=== PATIENT | male | born 1980 | race Caucasian/White ===

== ENCOUNTER → 2024-12-21 | Outpatient (CLI) | payer BC, SELFPAY ==
--- NOTE | 2024-12-21 15:08 | RAD_ITS ---
PROCEDURE: CHEST PA AND LATERAL 12/21/2024 REASON FOR EXAM: INFLAMMATORY POLYARTHROPATHY TECHNIQUE: Frontal and lateral views of the chest. COMPARISON: None RAD/Chest PA and Lateral IMPRESSION: No focal consolidation. Bibasilar subsegmental atelectasis. No pleural effusi on or pneumothorax. No acute fractures. Cardiac silhouette is unremarkable. Reading Location: [id number]
--- NOTE | 2024-12-21 15:10 | RAD_ITS ---
PROCEDURE: PELVIS 1 OR 2 VIEWS 12/21/2024 REASON FOR EXAM: INFLAMMATORY POLYARTHROPATHY TECHNIQUE: 1 view(s) of the pelvis. COMPARISON: None available FINDINGS: Bilateral symmetric appearing SI joints and pubic symphysis appear within limits. No asymmetric sclerosis or widening identified. No fracture or dislocation seen. The hip joint spaces appear within limits. RAD/Pelvis 1 or 2 Views IMPRESSION: Study appears within limits. Reading Location: [id number]
--- NOTE | 2024-12-21 15:10 | RAD_ITS ---
PROCEDURE: LUMBAR SPINE 2 OR 3 VIEWS 12/21/2024 REASON FOR EXAM: HISTORY OF HLA-B27 POLYARTHROPATHY TECHNIQUE: 2 view(s) of the lumbar spine COMPARISON: None available FINDINGS: 5 [id number] lumbar vertebral body types identified. No fracture or malalignment. The disc spaces appear within limits. Mild anterior degenerative endplate corner change at L3-4 at the superior anterior corner of L4 with a tiny focus of adjacent vacuum effect suggested. Facet joints appear within limits. RAD/Lumbar Spine 2 or 3 Views IMPRESSION: Very mild spondylosis suggested at L3-4 as above. Reading Location: [id number]
[2024-12-21 19:48] LABS: Absolute Lymphocyte Count 2.31 X10^3/uL (0.83-4.51); Absolute Neutrophil Count 4.2 X10^3/uL (2.0-7.7); Basophil% 1.4 % (0-1); Eosinophils% 1.4 % (0-5); Hematocrit 43.2 % (40-54); Hemoglobin 14.4 g/dL (13.0-16.5); Lymphocyte # 2.31 X10^3/ul (0.83-4.51); Mean Corp Hgb Conc 33.3 g/dL (32-36); Mean Corpuscular Hgb 30.3 pg (27.0-32.0); Mean Corpuscular Volume 90.9 fL (80-94); Mean Platelet Vol. 10.6 fl (6.2-12.0); Monocyte# 0.54 X10^3/uL; Monocyte% 7.5 % (0-10); NRBC Flagged by Analyzer 0 % (0-5); Neutrophil # 4.15 X10^3/uL (2.7-7.7); Neutrophil % 57.3 % (47-70); Platelet Count 304 K/mm3 (150-450); RBC Distribution Width CV 11.9 % (11.6-14.6); RBC Distribution Width SD 39.8 fl (35.1-43.9); Red Blood Count 4.75 M/mm3 (4.6-6.2); White Blood Count 7.2 K/mm3 (4.4-11.0)
[2024-12-21 20:29] LABS: Erythrocyte Sedimentation Rate 4 mm/hr (0-20)
[2024-12-21 20:47] LABS: ALB/GLOB Ratio 1.5 RATIO (0.9-2.4); AST(SGOT) 25 U/L (<=37); Alanine Aminotransfer ALT/SGPT 27 U/L (<=46); Albumin, Serum 4.6 g/dL (3.5-5.0); Alkaline Phosphatase 96 U/L (40-129); Anion Gap 13 (5-15); BUN 10 mg/dL (4-19); BUN/Creat Ratio 10.7 RATIO (10-20); Calcium,Total 9.3 mg/dL (7.6-11.0); Carbon Dioxide 25.1 mmol/L (21.0-32.0); Chloride 100 mmol/L (98-108); Creatinine, Serum 0.92 mg/dL (0.70-1.20); EST Glomerular Filtration Rate 106 (>60); Glucose 111 mg/dL (70-99); Hepatitis B Surface Antigen Nonreactive (Nonreactive); Hepatitis C Antibody Nonreactive (Nonreactive); Potassium 3.8 mmol/L (3.3-5.1); Protein, Total 7.6 g/dL (5.9-8.4); Sodium Level 138 mmol/L (133-145); Total Bilirubin 0.23 mg/dL (0.00-1.30)
[2024-12-21 20:59] LABS: CRP < 3.00 mg/L (0.0-3.0); Rheumatoid Factor < 10.0 IU/mL (<15)
[2024-12-21 21:38] LABS: Hepatitis B Surface Antibody Nonreactive
[2024-12-24 14:08] LABS: ANTINUCLEAR ANTIBODIES DIRECT Negative (Negative)
== END | disposition home or self-care (01) ==
LOC: MTRAD 15:07
PROVIDERS: PCP Family Medicine; Referring Provider Internal Medicine Rheumatology; Visit Provider Internal Medicine Rheumatology
DX: M06.4 Inflammatory polyarthropathy (principal); I10 Essential (primary) hypertension; R51.9 Headache, unspecified; E78.5 Hyperlipidemia, unspecified; M21.41 Flat foot [pes planus] (acquired), right foot; G25.81 Restless legs syndrome; Z79.899 Other long term (current) drug therapy
CPT/HCPCS: 36415; 71046; 72100; 72170; 80053; 85025; 85652; 86038; 86140; 86200; 86431; 86480; 86706; 86803; 87340

== ENCOUNTER → 2025-03-11 | Outpatient (CLI) | payer BC, SELFPAY ==
[2025-03-11 17:52] LABS: Hematocrit 40.3 % (40-54); Hemoglobin 13.6 g/dL (13.0-16.5); Immature Granulocytes Count 0.020 X10^3/uL (0.0-0.0); Mean Corp Hgb Conc 33.7 g/dL (32-36); Mean Corpuscular Volume 88.2 fL (80-94); Mean Platelet Vol. 10.5 fl (6.2-12.0); NRBC Flagged by Analyzer 0 % (0-5); Platelet Count 266 K/mm3 (150-450); RBC Distribution Width CV 12.8 % (11.6-14.6); RBC Distribution Width SD 41.1 fl (35.1-43.9); Red Blood Count 4.57 M/mm3 (4.6-6.2); White Blood Count 6.4 K/mm3 (4.4-11.0)
[2025-03-11 18:19] LABS: AST(SGOT) 23 U/L (<=37); Alanine Aminotransfer ALT/SGPT 22 U/L (<=46); Albumin, Serum 4.3 g/dL (3.5-5.0); Alkaline Phosphatase 90 U/L (40-129); Anion Gap 12 (5-15); BUN 13 mg/dL (4-19); BUN/Creat Ratio 16.2 RATIO (10-20); Calcium,Total 8.8 mg/dL (7.6-11.0); Carbon Dioxide 24.3 mmol/L (21.0-32.0); Chloride 104 mmol/L (98-108); Globulin 2.6 g/dL (2.2-4.2); Glucose 99 mg/dL (70-99); Potassium 3.7 mmol/L (3.3-5.1)
== END | disposition home or self-care (01) ==
LOC: MTLAB 15:18
PROVIDERS: PCP Family Medicine; Referring Provider Internal Medicine Rheumatology; Visit Provider Internal Medicine Rheumatology
DX: M06.09 Rheumatoid arthritis without rheumatoid factor, multiple sites (principal); Z79.899 Other long term (current) drug therapy
CPT/HCPCS: 36415; 80053; 85025